=== PATIENT | male | born 1965 | race Caucasian/White ===

== ENCOUNTER → 2016-08-12 | Outpatient (CLI) | payer OTHER ==
[~2016-08-12] MED LIST: AMLO5TAB4 PO; BUPR300T49 PO; GLIP10TA13 PO; HYDR25TA6 PO; INSU100C SQ-INSULIN; INSU100V8 SQ; LEVO50TA5 PO; LOSA100T2 PO; LOVA40TA2 PO; METF10002 PO; METO-93 PO; OMEG1CAP6 PO; OXYC1TAB7 PO; QUET200T4 PO; QUET300T5 PO; RISP2TAB3 PO; RISP3TAB3 PO; TRIF5TAB7 PO; ZOLP10TA PO
== END | disposition home or self-care (01) ==
LOC: RAD 16:13
PROVIDERS: ATTEND Neurological Surgery
DX: D33.2 Benign neoplasm of brain, unspecified (principal); Z98.890 Other specified postprocedural states
CPT/HCPCS: 70450

== ENCOUNTER 2016-11-25 14:24 | Observation (INO) | payer OTHER ==
[~2016-11-25] VITALS: Ht 185.4 cm; Wt 134.0 kg
[2016-11-25 15:58] LABS: HEMATOCRIT 44.2 % (39.2-51.8); HEMOGLOBIN 14.7 g/dL (13.7-18.0); WHITE BLOOD COUNT 10.4 x10^3/uL (3.4-10)
[2016-11-25 16:06] LABS: ASPARTATE AMINO TRANSFERASE 20 U/L (15-37); BLOOD UREA NITROGEN 17 mg/dL (7-18)
[2016-11-25 16:10] LABS: DAU SCREEN DISCLAIMER
[2016-11-25 16:12] LABS: ACETAMINOPHEN < 2 mcg/mL (10-30)
[2016-11-25] MEDS ORDERED: POLYETHYLENE GLYCOL 17 GM PACKET PO PRN (19:30)
[2016-11-25] MEDS ORDERED: ONDANSETRON ODT 4 MG PO PRN (19:30)
[2016-11-25] MEDS ORDERED: LORazepam 1MG TABLET PO PRN (20:00)
[2016-11-25] MEDS ORDERED: HALOPERIDOL 5 MG/ML IM PRN (20:00)
[2016-11-25] MEDS ORDERED: MULT-758 PO (20:27)
[2016-11-25] MEDS ORDERED: ATOR20TA9 PO (20:27)
[2016-11-25] MEDS ORDERED: AMLO10TA2 PO (20:27)
[2016-11-25] MEDS ORDERED: FURO20TA3 PO (20:27)
[2016-11-25] MEDS ORDERED: TIZA2CAP PO (20:27)
[2016-11-25] MEDS ORDERED: PARO10TA3 PO (20:27)
[2016-11-25] MEDS ORDERED: POTA10TA31 PO (20:27)
[2016-11-25] MEDS ORDERED: RISP3TAB3 PO (20:27)
[2016-11-25] MEDS ORDERED: FENO160T PO (20:27)
[2016-11-25] MEDS ORDERED: INSU100V8 SQ (20:33)
[2016-11-25 20:49] VITALS: BP 171/98
[2016-11-25] MEDS ORDERED: ZOLPIDEM 10MG TABLET PO SCH (21:00)
[2016-11-25] MEDS: metFORMIN 500 MG TABLET PO SCH (21:50)
[2016-11-25] MEDS: METOPROLOL SUCCINATE 50 MG TAB.ER.24H PO SCH (21:50)
[2016-11-25] MEDS: LOVASTATIN 40 MG TABLET PO SCH (21:51)
[2016-11-25] MEDS: INSULIN DETEMIR 100 UNITS/ML, PEN SQ-INSULIN SCH (21:55)
[2016-11-25] MEDS ORDERED: RISPERIDONE 1 MG TABLET PO ONE (22:00)
[2016-11-25] MEDS ORDERED: ZOLPIDEM 5MG TABLET ONE (22:28)
[2016-11-25] MEDS ORDERED: ZOLPIDEM 10MG TABLET PO ONE (22:30)
[2016-11-25 22:31] VITALS: BP 153/88
[2016-11-26 05:53] LABS: HEMATOCRIT 40.2 % (39.2-51.8); HEMOGLOBIN 13.3 g/dL (13.7-18.0)
[2016-11-26 06:05] LABS: BLOOD UREA NITROGEN 16 mg/dL (7-18)
[2016-11-26 06:11] LABS: ASPARTATE AMINO TRANSFERASE 13 U/L (15-37)
[2016-11-26] MEDS: INSULIN DETEMIR 100 UNITS/ML, PEN SQ-INSULIN SCH (07:32)
[2016-11-26 08:00] VITALS: BP 158/100
[2016-11-26] MEDS: metFORMIN 500 MG TABLET PO SCH ×2 (08:42→20:01)
[2016-11-26] MEDS ORDERED: SENNA/DOCUSATE TABLET PO SCH (09:00)
[2016-11-26] MEDS ORDERED: OMEGA-3/FISH OIL CAPSULE PO SCH (09:00)
[2016-11-26] MEDS ORDERED: LOSARTAN 50MG TABLET PO SCH (09:00)
[2016-11-26] MEDS ORDERED: HYDROCHLOROTHIAZIDE 25 MG TABLET PO SCH (09:00)
[2016-11-26] MEDS: INSULIN ASPART 100 UNITS/ML, PEN SQ-INSULIN SCH ×3 (09:00→16:34)
[2016-11-26] MEDS ORDERED: AMLODIPINE 5 MG TABLET PO SCH (09:00)
[2016-11-26] MEDS ORDERED: RISPERIDONE 1 MG TABLET PO SCH (09:00)
[2016-11-26] MEDS: METOPROLOL SUCCINATE 50 MG TAB.ER.24H PO SCH ×2 (09:06→20:02)
[2016-11-26] MEDS ORDERED: INSULIN DETEMIR 100 UNITS/ML, PEN SQ-INSULIN SCH (17:00)
[2016-11-26 19:34] VITALS: BP 118/66
[2016-11-26] MEDS ORDERED: METOPROLOL SUCCINATE 25 MG TAB.ER.24H ONE (19:52)
[2016-11-26] MEDS: LOVASTATIN 40 MG TABLET PO SCH (20:01)
[2016-11-26] MEDS ORDERED: ZOLPIDEM 5MG TABLET PO SCH (21:00)
[2016-11-27] MEDS ORDERED: INSULIN DETEMIR 100 UNITS/ML, PEN SQ-INSULIN SCH (08:00)
== END 2016-11-26 21:00 ==
LOC: ED 17:18 → EDIP 17:19 → 3E 20:54
PROVIDERS: ADMIT Hospitalist; ATTEND Hospitalist
DX: F25.9 Schizoaffective disorder, unspecified (principal); D72.829 Elevated white blood cell count, unspecified; I42.9 Cardiomyopathy, unspecified; E78.5 Hyperlipidemia, unspecified; I10 Essential (primary) hypertension; E03.9 Hypothyroidism, unspecified; E11.9 Type 2 diabetes mellitus without complications; F39 Unspecified mood [affective] disorder; F22 Delusional disorders; Z83.3 Family history of diabetes mellitus; Z87.891 Personal history of nicotine dependence; Z95.810 Presence of automatic (implantable) cardiac defibrillator
CPT/HCPCS: 36415; 80053; 80307; 80329; 82962; 83036; 84439; 84443; 85025; 93005; 96372; 99285; G0378; J1815; G0480

== ENCOUNTER → 2016-12-17 | Outpatient (CLI) | payer OTHER ==
[~2016-12-17] MED LIST changes: +AMLO10TA2 PO; +ATOR20TA9 PO; +FENO160T PO; +FURO20TA3 PO; +MULT-758 PO; +PARO10TA3 PO; +POTA10TA31 PO; +TIZA2CAP PO
== END | disposition home or self-care (01) ==
LOC: CFH 12:26
PROVIDERS: ATTEND Registered Nurse Registered Nurse First Assistant
DX: J32.3 Chronic sphenoidal sinusitis (principal); G93.0 Cerebral cysts
CPT/HCPCS: 70450

== ENCOUNTER → 2017-03-19 | Outpatient (CLI) | payer OTHER | END | disposition home or self-care (01) | LOC: CFH 12:14 | PROVIDERS: ATTEND Neurological Surgery | DX: D33.2 Benign neoplasm of brain, unspecified (principal); Z98.890 Other specified postprocedural states | CPT/HCPCS: 70450 ==

== ENCOUNTER → 2018-01-08 | Outpatient (CLI) | payer OTHER ==
[~2018-01-08] MED LIST changes: -AMLO10TA2 PO; +AMLO10TA6 PO
== END | disposition home or self-care (01) ==
LOC: CFH 10:00
PROVIDERS: ATTEND Nurse Practitioner Family
DX: G93.0 Cerebral cysts (principal)
CPT/HCPCS: 70450

== ENCOUNTER 2019-01-24 00:19 | Emergency (ER) | payer MEDICARE ==
[~2019-01-24] VITALS: Ht 185.4 cm; Wt 136.6 kg
[~2019-01-24 00:19] MED LIST changes: -AMLO10TA6 PO; +AMLO10TA8 PO; +ATOR20TA37 PO; -ATOR20TA9 PO
--- NOTE | 2019-01-24 00:30 | NUR ---
UA ATTEMPTED. PT DID NOT PROVIDE SAMPLE WHILST IN REST ROOM
--- NOTE | 2019-01-24 00:42 | NUR ---
ONE BAG OF BELONGINGS STICKERED AND PLACED IN LOCKED CABINET
[2019-01-24 01:02] LABS: BASOPHILS # (AUTO) 0.04 x10^3/uL (0-0.1); BASOPHILS % (AUTO) 0 % (0-1); EOSINOPHILS # (AUTO) 0.24 x10^3/uL (0-0.4); EOSINOPHILS % (AUTO) 2 % (1-7); LYMPHOCYTES # (AUTO) 2.63 x10^3/uL (1-3.4); LYMPHOCYTES % (AUTO) 26 % (22-44); MD NO; MEAN CORPUSCULAR HEMOGLOBIN 30.6 pg (27.5-34.5); MEAN CORPUSCULAR VOLUME 92.8 fL (81-97); MEAN PLATELET VOLUME 7.7 fL (7.4-10.4); MONOCYTES # (AUTO) 0.81 x10^3/uL (0.2-0.8); MONOCYTES % (AUTO) 8 % (2-9); NEUTROPHILS # (AUTO) 6.61 x10^3/uL (1.8-6.8); NEUTROPHILS % (AUTO) 64 % (42-75); PLATELET COUNT 272 x10^3/uL (130-400); RED BLOOD COUNT 4.53 x10^6/uL (4.38-5.82); RED CELL DISTRIBUTION WIDTH 12.7 % (9.4-14.8)
[2019-01-24 01:09] LABS: ALANINE AMINOTRANSFERASE 19 U/L (12-78); ALBUMIN 3.5 g/dL (3.4-5.0); ANION GAP 5 mmol/L (5-15); CALCIUM 9.2 mg/dL (8.5-10.1); CHLORIDE 105 mmol/L (98-107); CREATININE 1.26 mg/dL (0.7-1.3); SALICYLATE LEVEL < 1.7 mg/dL (2.8-20.0)
[2019-01-24 01:12] LABS: ALKALINE PHOSPHATASE 93 U/L (45-117); BILIRUBIN,TOTAL 0.4 mg/dL (0.2-1.0)
--- NOTE | 2019-01-24 01:38 | NUR ---
A SENCOND BAG LABELED AND PLACED IN LOCKED CABINET.
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
[2019-01-24] MEDS ORDERED: ZIPRASIDONE 20 MG INJ IM ONE (02:08)
--- NOTE | 2019-01-24 02:18 | NUR ---
PT NOT COOPERATING. PT WILL BE SLEEPING THEN GET UP AND STATES THAT HE IS TIRED OF BEING HERE AND HE IS LEAVING. WHEN ASKED TO GET BACK IN BED PT WILL REPLY "FUCK YOU" PT CONTINUALLY TRYING TO GET UP AND GET OUT OF BED DESPITE BEING STAFF TRYING TO GET HIM TO STAY IN BED, IN HIS ROOM. PT HOSTILE. PLACED IN 4 PT RESTRAINTS BY SECURITY. MEDICATED PER EMAR.
[2019-01-24] MEDS ORDERED: ZIPRASIDONE 20 MG INJ IM PRN (02:30)
--- NOTE | 2019-01-24 03:52 | NUR ---
ALL RESTRAINTS REMOVED. PT AMBULATORY TO THE BATHROOM WITH STEADY GAIT.
--- NOTE | 2019-01-24 04:16 | NUR ---
PT TELEPSYCHED, SOC RECOMMENDS CONTINUING HOLD. PT MEDICATIONS ADJUSTED.
[2019-01-24 04:17] LABS: AMPHETAMINE SCREEN, URINE Negative (Negative); BARBITURATE SCREEN, URINE Negative (Negative); BENZODIAZEPINE SCREEN, URINE Negative (Negative); CANNABINOID SCREEN, URINE Negative (Negative); COCAINE SCREEN, URINE Negative (Negative); METHADONE SCREEN, URINE Negative (Negative); OPIATE SCREEN, URINE Negative (Negative)
[2019-01-24] MEDS ORDERED: DIPHENHYDRAMINE 25 MG CAPSULE PO PRN (04:30)
[2019-01-24] MEDS ORDERED: HALOPERIDOL 5 MG TABLET ONE ×2 (04:37→09:33)
[2019-01-24] MEDS: HALOPERIDOL 5 MG TABLET PO PRN ×2 (04:39→09:37)
--- NOTE | 2019-01-24 04:40 | NUR ---
PT PACING, BUT CALM AND COOPERATIVE.
--- NOTE | 2019-01-24 05:44 | NUR ---
PT PACING AROUND ROOM, WATCHING TV. PT CONTINUES TO LEAVE ROOM AND HAS TO BE REDIRECTED BACK TO ROOM. PT CALM AND COMPLIENT WHEN REDIRECTED.
--- NOTE | 2019-01-24 06:06 | NUR ---
MEAL TRAY ORDERED
--- NOTE | 2019-01-24 06:16 | NUR ---
SPOKE TO ANNIE ON 3E WHO STATES PTS INSURANCE REQUIRES PRIOR APPROVAL AND WILL INFORM DAYSHIFT. ANNIE STATES OKAY TO SEND REFERRAL PACKET TO OTHER FACILITES. REFERRAL PACKET FAXED TO [facility], [facility], [facility], [facility], [facility], AND [facility].
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
--- NOTE | 2019-01-24 06:59 | NUR ---
REPORT TO AIDEE ARGUETA
[2019-01-24 07:23] VITALS: BP 157/93
--- NOTE | 2019-01-24 07:30 | NUR ---
UPDATE PROVIDED TO [facility]
--- NOTE | 2019-01-24 07:30 | NUR ---
[facility] DOESNT HAVE A MALE BED AVAILABLE
--- NOTE | 2019-01-24 09:37 | NUR ---
PATIENT CONTINUES TO BE COOPERATIVE WITH CARE, REQUESTS HALDOL PRN.
--- NOTE | 2019-01-24 09:47 | NUR ---
SPOKE WITH PATIENTS SISTER- UPDATE PROVIDED.
--- NOTE | 2019-01-24 09:51 | NUR ---
REPORT FROM AIDEE DO. PT RESTING IN SECURED ROOM WITH SITTER AT DOORWAY. PT STATES, "I JUST DON'T HAVE A PLAN FOR LIVING. I HOPE THEY CAN HELP ME WHEREVER I GO." PT CALM AND COOPERATIVE AT THIS TIME. NO NEEDS EXPRESSED.
--- NOTE | 2019-01-24 09:56 | NUR ---
REPORT GIVEN TO RAGHU HOSKINS
--- NOTE | 2019-01-24 10:34 | NUR ---
spoke with rn from 3rd floor. updates given that pt has been calm, cooperative and polite for me. per 3rd floor rn, waiting for insurance authorization. pt resting in room with lights dimmed watching tv. room secured. sitter at doorway. no needs expressed.
--- NOTE | 2019-01-24 11:12 | NUR ---
per rn on 3rd floor, pt is accepted and will be going to 384-1. pt standing in room. watching tv. room secured. sitter at doorway. pt updated on poc. no needs expressed. lunch tray ordered.
--- NOTE | 2019-01-24 12:39 | NUR ---
report to 3rd floor rn. pt ready for transport.
--- NOTE | 2019-01-24 12:44 | NUR ---
pt transferred to 3rd floor [facility] and all belongings.
== END 2019-01-24 17:24 ==
LOC: ED 01:51
DX: F23 Brief psychotic disorder (principal); I10 Essential (primary) hypertension; F25.9 Schizoaffective disorder, unspecified; Z87.891 Personal history of nicotine dependence
CPT/HCPCS: 36415; 80053; 80307; 82962; 85025; 96372; 99285; J3486

== ENCOUNTER 2019-01-24 11:32 | Inpatient (IN) | payer MEDICARE ==
[~2019-01-24] VITALS: Ht 185.4 cm; Wt 131.3 kg
[2019-01-24] MEDS ORDERED: POLYETHYLENE GLYCOL 17 GM PACKET PO PRN (12:00)
[2019-01-24] MEDS ORDERED: ACETAMINOPHEN 325 MG TABLET PO PRN (12:00)
[2019-01-24] MEDS ORDERED: BISACODYL 10 MG SUPP PR PRN (12:00)
[2019-01-24] MEDS ORDERED: PLEASE ENTER HEIGHT AND WEIGHT MC SCH ×2 (13:00→14:00)
[2019-01-24] MEDS ORDERED: DEXTROSE 4 GM TAB.CHEW PO PRN (13:30)
[2019-01-24] MEDS ORDERED: INSULIN GLARGINE, 100 UNITS/ML VIAL SQ SCH (13:30)
[2019-01-24] MEDS ORDERED: GLUCAGON 1 MG IM PRN (13:30)
[2019-01-24] MEDS ORDERED: DEXTROSE 50%, 50ML SYRINGE IVPush PRN (13:30)
[2019-01-24 13:33] VITALS: BP 140/81
[2019-01-24 13:48] LABS: MICROSCOPIC NOT IND
[2019-01-24 13:52] VITALS: BP 140/81
[2019-01-24 13:53] LABS: CULTURE INDICATED? NO
[2019-01-24] MEDS: HALOPERIDOL 5 MG TABLET PO PRN ×2 (14:10→23:36)
[2019-01-24 16:19] LABS: CHOL/HDL RATIO 3.5; FREE T4 (FREE THYROXINE) 1.01 ng/dL (0.76-1.46); LDL/HDL RATIO 1.9 (0.5-3.0)
[2019-01-24] MEDS ORDERED: ALBUTEROL SULFATE 2.5 MG/3 ML NPPB SCH (16:30)
[2019-01-24 16:37] LABS: HEMOGLOBIN A1C 8.7 % (4.2-6.3)
[2019-01-24] MEDS: INSULIN LISPRO 100 UNITS/ML, PEN SQ-INSULIN SCH ×2 (17:04→20:26)
[2019-01-24 19:39] VITALS: BP 149/95
[2019-01-24] MEDS ORDERED: ZOLPIDEM 5MG TABLET ONE (20:02)
[2019-01-24] MEDS: RISPERIDONE 1 MG TAB.RAPDIS PO SCH (20:08)
[2019-01-24] MEDS: metFORMIN 500 MG TABLET PO SCH (20:09)
[2019-01-24] MEDS: QUETIAPINE 200 MG TABLET PO SCH (20:09)
[2019-01-24] MEDS: METOPROLOL SUCCINATE 50 MG TAB.ER.24H PO SCH (20:09)
[2019-01-24] MEDS: INSULIN GLARGINE 100 UNITS/ML, PEN SQ-INSULIN SCH (20:28)
[2019-01-24] MEDS ORDERED: METOPROLOL SUCCINATE 50 MG TAB.ER.24H PO SCH (21:00)
[2019-01-24] MEDS ORDERED: ZOLPIDEM 5MG TABLET PO SCH (21:00)
[2019-01-24] MEDS: SODIUM CHLORIDE FLUSH 10ML SYR IVF SCH (21:38)
[2019-01-25] MEDS ORDERED: LORazepam 2 MG/ML, 1ML ONE (00:24)
[2019-01-25] MEDS ORDERED: LORazepam 2 MG/ML, 1ML IM ONE (00:30)
[2019-01-25] MEDS: HALOPERIDOL 5 MG TABLET PO PRN ×2 (05:44→20:09)
[2019-01-25 07:23] VITALS: BP 164/110
[2019-01-25] MEDS: INSULIN LISPRO 100 UNITS/ML, PEN SQ-INSULIN SCH ×4 (08:09→20:15)
[2019-01-25] MEDS: SODIUM CHLORIDE FLUSH 10ML SYR IVF SCH ×2 (08:16→20:16)
[2019-01-25] MEDS: metFORMIN 500 MG TABLET PO SCH ×2 (08:48→20:09)
[2019-01-25] MEDS: FUROSEMIDE 20 MG TABLET PO SCH (08:49)
[2019-01-25] MEDS: HYDROCHLOROTHIAZIDE 25 MG TABLET PO SCH (08:49)
[2019-01-25] MEDS: POTASSIUM CHLORIDE 10 MEQ TABLET.ER PO SCH (08:49)
[2019-01-25] MEDS: ATORVASTATIN 20 MG TABLET PO SCH (08:49)
[2019-01-25] MEDS: AMLODIPINE 10 MG TAB PO SCH (08:50)
[2019-01-25] MEDS: MULTIVITAMINS/MINERALS TABLET PO SCH (08:50)
[2019-01-25] MEDS: METOPROLOL SUCCINATE 50 MG TAB.ER.24H PO SCH ×2 (08:50→20:09)
[2019-01-25] MEDS: PAROXETINE 10 MG TABLET PO SCH (08:50)
[2019-01-25] MEDS: OMEGA-3/FISH OIL CAPSULE PO SCH ×2 (08:51→09:12)
[2019-01-25] MEDS: FENOFIBRATE 145 MG TABLET PO SCH (08:51)
[2019-01-25] MEDS ORDERED: AMLODIPINE 10 MG TAB PO SCH (09:00)
[2019-01-25] MEDS ORDERED: FUROSEMIDE 20 MG TABLET PO SCH (09:00)
[2019-01-25] MEDS ORDERED: HYDROCHLOROTHIAZIDE 25 MG TABLET PO SCH (09:00)
[2019-01-25 16:36] LABS: ALANINE AMINOTRANSFERASE 24 U/L (12-78); ANION GAP 6 mmol/L (5-15); CALCIUM 8.9 mg/dL (8.5-10.1); CHLORIDE 103 mmol/L (98-107)
[2019-01-25 16:38] LABS: BASOPHILS # (AUTO) 0.06 x10^3/uL (0-0.1); BASOPHILS % (AUTO) 1 % (0-1); EOSINOPHILS % (AUTO) 3 % (1-7); LYMPHOCYTES # (AUTO) 3.01 x10^3/uL (1-3.4); LYMPHOCYTES % (AUTO) 27 % (22-44); MD NO; MEAN CORPUSCULAR HEMOGLOBIN 30.8 pg (27.5-34.5); MEAN CORPUSCULAR HGB CONC 33.3 g/dL (33.2-36.2); MEAN CORPUSCULAR VOLUME 92.5 fL (81-97); MEAN PLATELET VOLUME 7.6 fL (7.4-10.4); MONOCYTES # (AUTO) 0.87 x10^3/uL (0.2-0.8); MONOCYTES % (AUTO) 8 % (2-9); NEUTROPHILS # (AUTO) 6.74 x10^3/uL (1.8-6.8); NEUTROPHILS % (AUTO) 61 % (42-75); PLATELET COUNT 334 x10^3/uL (130-400); RED BLOOD COUNT 4.88 x10^6/uL (4.38-5.82); RED CELL DISTRIBUTION WIDTH 13.1 % (9.4-14.8)
[2019-01-25 16:39] LABS: ALKALINE PHOSPHATASE 77 U/L (45-117); BILIRUBIN,TOTAL 0.4 mg/dL (0.2-1.0); CREATININE 1.05 mg/dL (0.7-1.3); TOTAL PROTEIN 7.8 g/dL (6.4-8.2)
[2019-01-25 19:43] VITALS: BP 136/81
[2019-01-25] MEDS: MELATONIN 5 MG TABLET PO SCH (20:09)
[2019-01-25] MEDS: RISPERIDONE 1 MG TAB.RAPDIS PO SCH (20:09)
[2019-01-25] MEDS: QUETIAPINE 200 MG TABLET PO SCH (20:09)
[2019-01-25] MEDS: INSULIN GLARGINE 100 UNITS/ML, PEN SQ-INSULIN SCH (20:13)
[2019-01-26 07:00] VITALS: BP 136/81
[2019-01-26] MEDS: AMLODIPINE 10 MG TAB PO SCH (08:25)
[2019-01-26] MEDS: metFORMIN 500 MG TABLET PO SCH ×2 (08:25→20:24)
[2019-01-26] MEDS: OMEGA-3/FISH OIL CAPSULE PO SCH (08:25)
[2019-01-26] MEDS: MULTIVITAMINS/MINERALS TABLET PO SCH (08:25)
[2019-01-26] MEDS: INSULIN LISPRO 100 UNITS/ML, PEN SQ-INSULIN SCH ×4 (08:25→20:42)
[2019-01-26] MEDS: METOPROLOL SUCCINATE 50 MG TAB.ER.24H PO SCH ×2 (08:25→20:25)
[2019-01-26] MEDS: PAROXETINE 10 MG TABLET PO SCH (08:26)
[2019-01-26] MEDS: ATORVASTATIN 20 MG TABLET PO SCH (08:26)
[2019-01-26] MEDS: FUROSEMIDE 20 MG TABLET PO SCH (08:26)
[2019-01-26] MEDS: HYDROCHLOROTHIAZIDE 25 MG TABLET PO SCH (08:26)
[2019-01-26] MEDS: FENOFIBRATE 145 MG TABLET PO SCH (08:26)
[2019-01-26] MEDS: POTASSIUM CHLORIDE 10 MEQ TABLET.ER PO SCH (08:28)
[2019-01-26] MEDS: SODIUM CHLORIDE FLUSH 10ML SYR IVF SCH ×2 (08:33→21:00)
[2019-01-26 19:28] VITALS: BP 133/82
[2019-01-26] MEDS: MELATONIN 5 MG TABLET PO SCH (20:24)
[2019-01-26] MEDS: QUETIAPINE 200 MG TABLET PO SCH (20:25)
[2019-01-26] MEDS: INSULIN GLARGINE 100 UNITS/ML, PEN SQ-INSULIN SCH (20:43)
[2019-01-26] MEDS ORDERED: ZIPRASIDONE 20MG CAPSULE PO SCH (21:00)
[2019-01-27] MEDS: HALOPERIDOL 5 MG TABLET PO PRN ×2 (01:30→13:55)
[2019-01-27 07:36] VITALS: BP 144/95
[2019-01-27] MEDS: INSULIN LISPRO 100 UNITS/ML, PEN SQ-INSULIN SCH ×4 (08:11→20:49)
[2019-01-27] MEDS: MULTIVITAMINS/MINERALS TABLET PO SCH (08:12)
[2019-01-27] MEDS: METOPROLOL SUCCINATE 50 MG TAB.ER.24H PO SCH ×2 (08:12→20:15)
[2019-01-27] MEDS: AMLODIPINE 10 MG TAB PO SCH (08:12)
[2019-01-27] MEDS: OMEGA-3/FISH OIL CAPSULE PO SCH (08:12)
[2019-01-27] MEDS: PAROXETINE 10 MG TABLET PO SCH (08:13)
[2019-01-27] MEDS: HYDROCHLOROTHIAZIDE 25 MG TABLET PO SCH (08:13)
[2019-01-27] MEDS: ATORVASTATIN 20 MG TABLET PO SCH (08:13)
[2019-01-27] MEDS: FENOFIBRATE 145 MG TABLET PO SCH (08:13)
[2019-01-27] MEDS: FUROSEMIDE 20 MG TABLET PO SCH (08:13)
[2019-01-27] MEDS: POTASSIUM CHLORIDE 10 MEQ TABLET.ER PO SCH (08:14)
[2019-01-27] MEDS: metFORMIN 500 MG TABLET PO SCH ×2 (08:16→20:15)
[2019-01-27 19:09] VITALS: BP 137/79
[2019-01-27] MEDS: MELATONIN 5 MG TABLET PO SCH (20:15)
[2019-01-27] MEDS: ZIPRASIDONE 20MG CAPSULE PO SCH (20:15)
[2019-01-27] MEDS: QUETIAPINE 200 MG TABLET PO SCH (20:15)
[2019-01-27] MEDS: INSULIN GLARGINE 100 UNITS/ML, PEN SQ-INSULIN SCH (20:50)
[2019-01-27] MEDS ORDERED: DIPHENHYDRAMINE 25 MG CAPSULE ONE (23:33)
[2019-01-28] MEDS ORDERED: DIPHENHYDRAMINE 25 MG CAPSULE PO ONE
[2019-01-28] MEDS ORDERED: DIPHENHYDRAMINE 25 MG CAPSULE PO PRN
[2019-01-28] MEDS: HALOPERIDOL 5 MG TABLET PO PRN ×2 (01:42→22:34)
[2019-01-28 07:50] VITALS: BP 152/85
[2019-01-28] MEDS: INSULIN LISPRO 100 UNITS/ML, PEN SQ-INSULIN SCH ×4 (08:06→19:58)
[2019-01-28] MEDS: POTASSIUM CHLORIDE 10 MEQ TABLET.ER PO SCH (09:00)
[2019-01-28] MEDS: ZIPRASIDONE 20MG CAPSULE PO SCH ×2 (09:23→20:48)
[2019-01-28] MEDS: HYDROCHLOROTHIAZIDE 25 MG TABLET PO SCH (09:24)
[2019-01-28] MEDS: metFORMIN 500 MG TABLET PO SCH ×2 (09:24→20:49)
[2019-01-28] MEDS: MULTIVITAMINS/MINERALS TABLET PO SCH (09:24)
[2019-01-28] MEDS: AMLODIPINE 10 MG TAB PO SCH (09:24)
[2019-01-28] MEDS: OMEGA-3/FISH OIL CAPSULE PO SCH (09:24)
[2019-01-28] MEDS: FENOFIBRATE 145 MG TABLET PO SCH (09:24)
[2019-01-28] MEDS: PAROXETINE 10 MG TABLET PO SCH (09:24)
[2019-01-28] MEDS: FUROSEMIDE 20 MG TABLET PO SCH (09:24)
[2019-01-28] MEDS: DOCUSATE 100 MG CAPSULE PO PRN (09:24)
[2019-01-28] MEDS: ATORVASTATIN 20 MG TABLET PO SCH (09:25)
[2019-01-28] MEDS: METOPROLOL SUCCINATE 50 MG TAB.ER.24H PO SCH ×2 (09:25→20:49)
[2019-01-28 19:37] VITALS: BP 136/86
[2019-01-28] MEDS: INSULIN GLARGINE 100 UNITS/ML, PEN SQ-INSULIN SCH (19:57)
[2019-01-28] MEDS: DOXEPIN 25 MG CAPSULE PO SCH (20:48)
[2019-01-28] MEDS: MELATONIN 5 MG TABLET PO SCH (20:49)
[2019-01-28] MEDS: QUETIAPINE 200 MG TABLET PO SCH (20:49)
[2019-01-28] MEDS: DOXEPIN 100 MG CAPSULE PO SCH (21:00)
[2019-01-29 07:01] VITALS: BP 136/87
[2019-01-29] MEDS: INSULIN LISPRO 100 UNITS/ML, PEN SQ-INSULIN SCH ×4 (08:06→19:59)
[2019-01-29] MEDS: ZIPRASIDONE 20MG CAPSULE PO SCH ×2 (08:31→19:58)
[2019-01-29] MEDS: AMLODIPINE 10 MG TAB PO SCH (08:31)
[2019-01-29] MEDS: metFORMIN 500 MG TABLET PO SCH ×2 (08:32→19:59)
[2019-01-29] MEDS: PAROXETINE 10 MG TABLET PO SCH (08:32)
[2019-01-29] MEDS: OMEGA-3/FISH OIL CAPSULE PO SCH (08:32)
[2019-01-29] MEDS: FENOFIBRATE 145 MG TABLET PO SCH (08:32)
[2019-01-29] MEDS: METOPROLOL SUCCINATE 50 MG TAB.ER.24H PO SCH ×2 (08:33→19:58)
[2019-01-29] MEDS: FUROSEMIDE 20 MG TABLET PO SCH (08:33)
[2019-01-29] MEDS: HYDROCHLOROTHIAZIDE 25 MG TABLET PO SCH (08:33)
[2019-01-29] MEDS: ATORVASTATIN 20 MG TABLET PO SCH (08:33)
[2019-01-29] MEDS: POTASSIUM CHLORIDE 10 MEQ TABLET.ER PO SCH (08:33)
[2019-01-29] MEDS: MULTIVITAMINS/MINERALS TABLET PO SCH (08:33)
[2019-01-29 19:35] VITALS: BP 162/89
[2019-01-29] MEDS: DOXEPIN 25 MG CAPSULE PO SCH (19:58)
[2019-01-29] MEDS: MELATONIN 5 MG TABLET PO SCH (19:58)
[2019-01-29] MEDS: QUETIAPINE 200 MG TABLET PO SCH (19:59)
[2019-01-29] MEDS: DOXEPIN 100 MG CAPSULE PO SCH (19:59)
[2019-01-29] MEDS: INSULIN GLARGINE 100 UNITS/ML, PEN SQ-INSULIN SCH (20:00)
[2019-01-30] MEDS ORDERED: ZIPRASIDONE 20MG CAPSULE PO ONE (02:00)
[2019-01-30 07:06] VITALS: BP 148/89
[2019-01-30] MEDS: INSULIN LISPRO 100 UNITS/ML, PEN SQ-INSULIN SCH ×4 (08:07→19:54)
[2019-01-30] MEDS ORDERED: DIPHENHYDRAMINE 50 MG/ML, 1ML ONE (08:42)
[2019-01-30] MEDS ORDERED: OLANZAPINE 10 MG INJ IM ONE ×2 (08:42→09:00)
[2019-01-30] MEDS ORDERED: LORazepam 2 MG/ML, 1ML ONE (08:43)
[2019-01-30] MEDS ORDERED: ZIPRASIDONE 40MG CAPSULE PO SCH (09:00)
[2019-01-30] MEDS: HYDROCHLOROTHIAZIDE 25 MG TABLET PO SCH (09:00)
[2019-01-30] MEDS: ATORVASTATIN 20 MG TABLET PO SCH (09:00)
[2019-01-30] MEDS: PAROXETINE 10 MG TABLET PO SCH (09:00)
[2019-01-30] MEDS: MULTIVITAMINS/MINERALS TABLET PO SCH (09:00)
[2019-01-30] MEDS: FENOFIBRATE 145 MG TABLET PO SCH (09:00)
[2019-01-30] MEDS ORDERED: LORazepam 2 MG/ML, 1ML IM ONE (09:00)
[2019-01-30] MEDS: METOPROLOL SUCCINATE 50 MG TAB.ER.24H PO SCH ×2 (09:00→21:56)
[2019-01-30] MEDS: FUROSEMIDE 20 MG TABLET PO SCH (09:00)
[2019-01-30] MEDS: POTASSIUM CHLORIDE 10 MEQ TABLET.ER PO SCH (09:00)
[2019-01-30] MEDS ORDERED: DIPHENHYDRAMINE 50 MG/ML, 1ML IM ONE (09:00)
[2019-01-30] MEDS: AMLODIPINE 10 MG TAB PO SCH (09:00)
[2019-01-30] MEDS: OMEGA-3/FISH OIL CAPSULE PO SCH (09:00)
[2019-01-30] MEDS: metFORMIN 500 MG TABLET PO SCH ×2 (09:00→21:54)
[2019-01-30 10:53] VITALS: BP 114/61
[2019-01-30] MEDS: RISPERIDONE 1 MG TAB.RAPDIS PO SCH ×2 (11:53→21:55)
[2019-01-30 19:31] VITALS: BP 129/82
[2019-01-30] MEDS: INSULIN GLARGINE 100 UNITS/ML, PEN SQ-INSULIN SCH (19:53)
[2019-01-30] MEDS ORDERED: RISPERIDONE 1 MG TAB.RAPDIS PO SCH (21:00)
[2019-01-30] MEDS: DOXEPIN 100 MG CAPSULE PO SCH (21:53)
[2019-01-30] MEDS: DOXEPIN 25 MG CAPSULE PO SCH (21:54)
[2019-01-30] MEDS: QUETIAPINE 200 MG TABLET PO SCH (21:55)
[2019-01-30] MEDS: MELATONIN 5 MG TABLET PO SCH (21:55)
[2019-01-31] MEDS: HALOPERIDOL 5 MG TABLET PO PRN
[2019-01-31] MEDS: INSULIN LISPRO 100 UNITS/ML, PEN SQ-INSULIN SCH ×4 (08:19→20:53)
[2019-01-31] MEDS: OMEGA-3/FISH OIL CAPSULE PO SCH (08:20)
[2019-01-31] MEDS: metFORMIN 500 MG TABLET PO SCH ×2 (08:20→20:39)
[2019-01-31] MEDS: HYDROCHLOROTHIAZIDE 25 MG TABLET PO SCH (08:21)
[2019-01-31] MEDS: FUROSEMIDE 20 MG TABLET PO SCH (08:21)
[2019-01-31] MEDS: PAROXETINE 10 MG TABLET PO SCH (08:22)
[2019-01-31] MEDS: MULTIVITAMINS/MINERALS TABLET PO SCH (08:22)
[2019-01-31] MEDS: ATORVASTATIN 20 MG TABLET PO SCH (08:22)
[2019-01-31] MEDS: FENOFIBRATE 145 MG TABLET PO SCH (08:23)
[2019-01-31] MEDS: AMLODIPINE 10 MG TAB PO SCH (08:23)
[2019-01-31] MEDS: RISPERIDONE 1 MG TAB.RAPDIS PO SCH ×2 (08:23→20:39)
[2019-01-31] MEDS: METOPROLOL SUCCINATE 50 MG TAB.ER.24H PO SCH ×2 (08:23→20:39)
[2019-01-31] MEDS: POTASSIUM CHLORIDE 10 MEQ TABLET.ER PO SCH (08:32)
[2019-01-31] MEDS: DOCUSATE 100 MG CAPSULE PO PRN (18:08)
[2019-01-31 19:49] VITALS: BP 142/75
[2019-01-31] MEDS: DOXEPIN 25 MG CAPSULE PO SCH (20:37)
[2019-01-31] MEDS: LORazepam 1MG TABLET PO SCH (20:37)
[2019-01-31] MEDS: MELATONIN 5 MG TABLET PO SCH (20:39)
[2019-01-31] MEDS: DOXEPIN 100 MG CAPSULE PO SCH (20:39)
[2019-01-31] MEDS: INSULIN GLARGINE 100 UNITS/ML, PEN SQ-INSULIN SCH (21:15)
[2019-01-31] MEDS: QUETIAPINE 200 MG TABLET PO SCH (21:16)
[2019-02-01 07:29] VITALS: BP 137/85
[2019-02-01] MEDS: INSULIN LISPRO 100 UNITS/ML, PEN SQ-INSULIN SCH ×4 (07:35→20:26)
[2019-02-01] MEDS: OMEGA-3/FISH OIL CAPSULE PO SCH (08:25)
[2019-02-01] MEDS: FENOFIBRATE 145 MG TABLET PO SCH (08:25)
[2019-02-01] MEDS: FUROSEMIDE 20 MG TABLET PO SCH (08:26)
[2019-02-01] MEDS: ATORVASTATIN 20 MG TABLET PO SCH (08:26)
[2019-02-01] MEDS: MULTIVITAMINS/MINERALS TABLET PO SCH (08:26)
[2019-02-01] MEDS: metFORMIN 500 MG TABLET PO SCH ×2 (08:26→20:18)
[2019-02-01] MEDS: AMLODIPINE 10 MG TAB PO SCH (08:26)
[2019-02-01] MEDS: PAROXETINE 10 MG TABLET PO SCH (08:26)
[2019-02-01] MEDS: METOPROLOL SUCCINATE 50 MG TAB.ER.24H PO SCH ×2 (08:26→20:19)
[2019-02-01] MEDS: HYDROCHLOROTHIAZIDE 25 MG TABLET PO SCH (08:26)
[2019-02-01] MEDS: RISPERIDONE 1 MG TAB.RAPDIS PO SCH ×2 (08:27→20:44)
[2019-02-01] MEDS: POTASSIUM CHLORIDE 10 MEQ TABLET.ER PO SCH (08:27)
[2019-02-01] MEDS ORDERED: QUET200T PO (14:42)
[2019-02-01] MEDS ORDERED: PARO10TA3 PO (14:42)
[2019-02-01] MEDS ORDERED: RISP-2 PO (14:42)
[2019-02-01] MEDS ORDERED: LORA-446 PO (14:42)
[2019-02-01 19:00] VITALS: BP 125/78
[2019-02-01] MEDS: LORazepam 1MG TABLET PO SCH (20:18)
[2019-02-01] MEDS: DOXEPIN 100 MG CAPSULE PO SCH (20:18)
[2019-02-01] MEDS: QUETIAPINE 200 MG TABLET PO SCH (20:18)
[2019-02-01] MEDS: MELATONIN 5 MG TABLET PO SCH (20:19)
[2019-02-01] MEDS: DOXEPIN 25 MG CAPSULE PO SCH (20:19)
[2019-02-01] MEDS: INSULIN GLARGINE 100 UNITS/ML, PEN SQ-INSULIN SCH (20:25)
[2019-02-01 23:01] VITALS: BP 126/79
[2019-02-02] MEDS: HALOPERIDOL 5 MG TABLET PO PRN (01:42)
[2019-02-02 07:32] VITALS: BP 125/78
[2019-02-02] MEDS: metFORMIN 500 MG TABLET PO SCH (08:07)
[2019-02-02] MEDS: OMEGA-3/FISH OIL CAPSULE PO SCH (08:07)
[2019-02-02] MEDS: AMLODIPINE 10 MG TAB PO SCH (08:08)
[2019-02-02] MEDS: MULTIVITAMINS/MINERALS TABLET PO SCH (08:08)
[2019-02-02] MEDS: ATORVASTATIN 20 MG TABLET PO SCH (08:08)
[2019-02-02] MEDS: FUROSEMIDE 20 MG TABLET PO SCH (08:08)
[2019-02-02] MEDS: PAROXETINE 10 MG TABLET PO SCH (08:08)
[2019-02-02] MEDS: FENOFIBRATE 145 MG TABLET PO SCH (08:09)
[2019-02-02] MEDS: METOPROLOL SUCCINATE 50 MG TAB.ER.24H PO SCH (08:09)
[2019-02-02] MEDS: POTASSIUM CHLORIDE 10 MEQ TABLET.ER PO SCH (08:10)
[2019-02-02] MEDS: RISPERIDONE 1 MG TAB.RAPDIS PO SCH (08:12)
[2019-02-02] MEDS: HYDROCHLOROTHIAZIDE 25 MG TABLET PO SCH (08:12)
[2019-02-02] MEDS: INSULIN LISPRO 100 UNITS/ML, PEN SQ-INSULIN SCH (08:15)
== END 2019-02-02 10:55 | disposition home or self-care (01) | DRG 885 ==
LOC: 3E 12:48
PROVIDERS: ADMIT Psychiatry & Neurology Psychosomatic Medicine; ATTEND Psychiatry & Neurology Psychosomatic Medicine
DX: F25.1 Schizoaffective disorder, depressive type (principal); R45.851 Suicidal ideations; I42.9 Cardiomyopathy, unspecified; T43.592A Poisoning by other antipsychotics and neuroleptics, intentional self-harm, initial encounter; G93.0 Cerebral cysts; E03.9 Hypothyroidism, unspecified; E11.9 Type 2 diabetes mellitus without complications; E66.9 Obesity, unspecified; I10 Essential (primary) hypertension; E78.5 Hyperlipidemia, unspecified; F25.0 Schizoaffective disorder, bipolar type; G47.00 Insomnia, unspecified; Z82.49 Family history of ischemic heart disease and other diseases of the circulatory system; Z68.38 Body mass index [BMI] 38.0-38.9, adult; Z79.4 Long term (current) use of insulin; Z79.899 Other long term (current) drug therapy; Z88.1 Allergy status to other antibiotic agents; Y92.89 Other specified places as the place of occurrence of the external cause; E78.1 Pure hyperglyceridemia; F41.9 Anxiety disorder, unspecified
CPT/HCPCS: 36415; 70450; 71045; 80053; 80061; 81003; 82140; 82962; 83036; 84439; 84443; 85025; 93005; J1200; J1815; J2060; Q0163

== ENCOUNTER 2019-03-14 23:31 | Emergency (ER) | payer MEDICARE ==
[~2019-03-14] VITALS: Ht 185.4 cm; Wt 136.6 kg
[~2019-03-14 23:31] MED LIST changes: +LORA-446 PO; +QUET200T PO; +RISP-2 PO
[2019-03-14 23:33] VITALS: BP 173/90
[2019-03-15] MEDS ORDERED: ZIPRASIDONE 20 MG INJ IM ONE ×2
[2019-03-15 00:12] LABS: BASOPHILS # (AUTO) 0.06 x10^3/uL (0-0.1); BASOPHILS % (AUTO) 1 % (0-1); EOSINOPHILS # (AUTO) 0.08 x10^3/uL (0-0.4); EOSINOPHILS % (AUTO) 1 % (1-7); LYMPHOCYTES # (AUTO) 2.55 x10^3/uL (1-3.4); LYMPHOCYTES % (AUTO) 26 % (22-44); MD NO; MEAN CORPUSCULAR HEMOGLOBIN 31.2 pg (27.5-34.5); MEAN CORPUSCULAR HGB CONC 33.6 g/dL (33.2-36.2); MEAN CORPUSCULAR VOLUME 92.8 fL (81-97); MEAN PLATELET VOLUME 7.8 fL (7.4-10.4); MONOCYTES # (AUTO) 0.53 x10^3/uL (0.2-0.8); MONOCYTES % (AUTO) 5 % (2-9); NEUTROPHILS # (AUTO) 6.75 x10^3/uL (1.8-6.8); NEUTROPHILS % (AUTO) 68 % (42-75); PLATELET COUNT 264 x10^3/uL (130-400); RED BLOOD COUNT 4.77 x10^6/uL (4.38-5.82)
[2019-03-15 00:22] LABS: ALBUMIN 3.6 g/dL (3.4-5.0); ANION GAP 10 mmol/L (5-15); CALCIUM 8.6 mg/dL (8.5-10.1); CHLORIDE 101 mmol/L (98-107); SALICYLATE LEVEL 5.9 mg/dL (2.8-20.0)
[2019-03-15 00:24] LABS: CREATININE 1.02 mg/dL (0.7-1.3)
[2019-03-15 00:38] LABS: AMPHETAMINE SCREEN, URINE Negative (Negative); BARBITURATE SCREEN, URINE Negative (Negative); BENZODIAZEPINE SCREEN, URINE Negative (Negative); CANNABINOID SCREEN, URINE Negative (Negative); COCAINE SCREEN, URINE Negative (Negative); METHADONE SCREEN, URINE Negative (Negative); OPIATE SCREEN, URINE Negative (Negative)
--- NOTE | 2019-03-15 00:53 | NUR ---
Patient came to ER c/o lack of sleep x2.5 months. He is also experiecing auditory hallucinations. Sister accompanies patient and states he has had a lot of stress this year. Patient placed on suicidal precautions. Belongings collected and placed in 2 bags.
[2019-03-15] MEDS ORDERED: LORazepam 1MG TABLET ONE (01:21)
[2019-03-15] MEDS ORDERED: LORazepam 1MG TABLET PO ONE (01:30)
--- NOTE | 2019-03-15 02:10 | NUR ---
Patient resting in gurney. Respirations even and unlabored. Belongings locked in cabinet. Sitter outside room.
--- NOTE | 2019-03-15 03:24 | NUR ---
Patient resting in gurney. Respirations even and unlabored. Patient to be transferred to room 389. Report given to AIDEE Whitney.
--- NOTE | 2019-03-15 03:28 | NUR ---
Patient discharged and prepared for transport to . Patient transported by orthopaedic technologist. Belongings with tech.
== END 2019-03-15 03:30 | disposition home or self-care (01) ==
LOC: ED 03-15 00:38
DX: F31.62 Bipolar disorder, current episode mixed, moderate (principal); F22 Delusional disorders; F23 Brief psychotic disorder; I10 Essential (primary) hypertension; F17.200 Nicotine dependence, unspecified, uncomplicated; Z72.89 Other problems related to lifestyle
CPT/HCPCS: 36415; 70450; 80048; 80307; 82040; 85025; 96372; 99284; J3486

== ENCOUNTER 2019-03-15 17:37 | Emergency (ER) | payer MEDICARE ==
[~2019-03-15] VITALS: Ht 185.4 cm; Wt 134.4 kg
[2019-03-15 18:52] LABS: BASOPHILS # (AUTO) 0.04 x10^3/uL (0-0.1); BASOPHILS % (AUTO) 0 % (0-1); EOSINOPHILS % (AUTO) 1 % (1-7); LYMPHOCYTES # (AUTO) 1.95 x10^3/uL (1-3.4); LYMPHOCYTES % (AUTO) 22 % (22-44); MD NO; MEAN CORPUSCULAR HGB CONC 33.7 g/dL (33.2-36.2); MEAN CORPUSCULAR VOLUME 92.1 fL (81-97); MONOCYTES # (AUTO) 0.63 x10^3/uL (0.2-0.8); MONOCYTES % (AUTO) 7 % (2-9); NEUTROPHILS # (AUTO) 6.18 x10^3/uL (1.8-6.8); NEUTROPHILS % (AUTO) 70 % (42-75); PLATELET COUNT 264 x10^3/uL (130-400); RED BLOOD COUNT 4.71 x10^6/uL (4.38-5.82)
[2019-03-15 19:01] LABS: ALANINE AMINOTRANSFERASE 29 U/L (12-78); ALBUMIN 3.6 g/dL (3.4-5.0); ANION GAP 6 mmol/L (5-15); CALCIUM 8.5 mg/dL (8.5-10.1); CHLORIDE 104 mmol/L (98-107); CREATININE 1.19 mg/dL (0.7-1.3)
[2019-03-15 19:03] LABS: ALKALINE PHOSPHATASE 82 U/L (45-117); BILIRUBIN,TOTAL 0.4 mg/dL (0.2-1.0); SALICYLATE LEVEL 4.8 mg/dL (2.8-20.0); TOTAL PROTEIN 7.2 g/dL (6.4-8.2)
--- NOTE | 2019-03-15 19:11 | NUR ---
BELONGINGS BAGS X 2 LABELED AND IN LOCKER
--- NOTE | 2019-03-15 19:35 | NUR ---
LATE ENTRY, PT AMBULATORY TO ROOM FROM TRIAGE. FAMILY AT BEDSIDE. SITTER AT DOORWAY WITH PT IN VIEW. BELONGINGS BAGS X 2 LABELED AND PLACED IN LOCKER.
--- NOTE | 2019-03-15 19:37 | NUR ---
DIET TRAY ORDERED.
--- NOTE | 2019-03-15 19:40 | NUR ---
JUAN LIN [phone]
--- NOTE | 2019-03-15 20:21 | NUR ---
REPORT FROM JADON VELEZ SENT, PT REFUSED BY 3 EAST IN HOUSE AT THIS TIME, PT PLACED ON A LEGAL HOLD BY DR MORAN
[2019-03-15 20:22] LABS: AMPHETAMINE SCREEN, URINE Negative (Negative); BARBITURATE SCREEN, URINE Negative (Negative); BENZODIAZEPINE SCREEN, URINE Negative (Negative); CANNABINOID SCREEN, URINE Negative (Negative); COCAINE SCREEN, URINE Negative (Negative); METHADONE SCREEN, URINE Negative (Negative); OPIATE SCREEN, URINE Negative (Negative)
[2019-03-15] MEDS ORDERED: LORazepam 1MG TABLET ONE (20:26)
[2019-03-15] MEDS ORDERED: LORazepam 1MG TABLET PO ONE (20:30)
--- NOTE | 2019-03-15 21:13 | NUR ---
Moe pedraza in ED - 03/15/19 at 2215 by [email or web address] Patient finished consult with telePSYCH. He is resting comfortably in the [facility] with no complaints. Sitter outside room.
--- NOTE | 2019-03-15 21:13 | NUR ---
Patient is resting comfortably in bed with no complaints. Sitter outside room.
--- NOTE | 2019-03-15 22:16 | NUR ---
Patient is resting comfortably in bed with no complaints. Sitter outside room.
--- NOTE | 2019-03-15 23:09 | NUR ---
PACKET FAXED TO [facility], [facility], [facility], [facility]. [facility] UNABLE TO TAKE PT.
[2019-03-16 00:24] VITALS: BP 154/97
--- NOTE | 2019-03-16 00:58 | NUR ---
BREAK RN: VITALS DONE AND CHARTED. PT HAD MYSTERY PATCH ON LEFT ARM, PATCH HAS NO IDENTIFYING PRINT ON IT, PATCH REMOVED. PT STATED WAS A NICOTINE PATCH, PT ALREADY HAS NICOTINE PATCH ON RIGHT UPPER ARM OF PRESCRIBED DOSE. [facility] WANT[facility] TO TAKE PT, NEEDED MED LIST CLARIFIED, SHARMILA FOURNIER CLARIFIED PT MEDS. [facility] ASKING BLOOD GLUCOSE TO BE ADDRESSED, PRIMARY RN AWARE. SITTER AT DOOR.
[2019-03-16] MEDS ORDERED: INSULIN LISPRO SINGLE DOSE, ER SQ-INSULIN ONE (01:26)
[2019-03-16] MEDS ORDERED: INSULIN LISPRO 100 UNIT/ML, 3ML VIAL SQ-INSULIN SCH (01:30)
--- NOTE | 2019-03-16 01:50 | NUR ---
BGL addressed and medication administered per mar. Patient continuously getting out of bed and requesting to make a phone call.
--- NOTE | 2019-03-16 03:06 | NUR ---
Patient to be transferred to [facility]. [facility] ETA 30 minutes.
[2019-03-16] MEDS ORDERED: INSULIN GLARGINE 100 UNITS/ML, PEN SQ-INSULIN SCH (21:00)
== END 2019-03-16 05:09 ==
LOC: ED 19:30 → EDIP 20:00 → UNDOADMIN 20:00 → ED 03-16 05:09
DX: F31.9 Bipolar disorder, unspecified (principal); I10 Essential (primary) hypertension; F25.9 Schizoaffective disorder, unspecified; F17.200 Nicotine dependence, unspecified, uncomplicated; E11.9 Type 2 diabetes mellitus without complications
CPT/HCPCS: 36415; 80053; 80307; 85025; 96372; 99285; J1815; 99284

== ENCOUNTER → 2019-11-16 | Outpatient (CLI) | payer MEDICARE | END | disposition home or self-care (01) | LOC: CVU 11:45 | PROVIDERS: ATTEND Internal Medicine Cardiovascular Disease | DX: I42.9 Cardiomyopathy, unspecified (principal); I10 Essential (primary) hypertension | CPT/HCPCS: 93306; 93356 ==

== ENCOUNTER → 2020-04-04 | Outpatient (CLI) | payer MEDICARE ==
[~2020-04-04] MED LIST changes: +AMLO-211 PO; -AMLO10TA8 PO; -RISP2TAB3 PO; +RISP2TAB80 PO; -RISP3TAB3 PO; +RISP3TAB58 PO
== END | disposition home or self-care (01) ==
LOC: CFH 09:07
PROVIDERS: ATTEND Nurse Practitioner Family
DX: G93.0 Cerebral cysts (principal)
CPT/HCPCS: 70450

== ENCOUNTER 2020-11-22 14:02 | Observation (INO) | payer MEDICARE ==
[~2020-11-22] VITALS: Ht 185.4 cm; Wt 142.0 kg
[~2020-11-22 14:02] MED LIST changes: -QUET200T PO; +QUET200T2 PO
--- NOTE | 2020-11-22 14:04 | NUR ---
ERMD AT BEDSIDE FOR EVALUATION.
--- NOTE | 2020-11-22 14:05 | NUR ---
LATE ENTRY DUE TO PATIENT CARE: [facility] WITH CHIEF C/O "PSYCH ISSUES." PER EMS PATIENT WAS ON DEPAKOTE AND DIDN'T LIKE IT SO SPOKE WITH A TELE DOC AND WAS SWITCHED TO SEROQUEL YESTERDAY. PATIENT DOUBLED HIS DOSE, REPORTED TO EMS HE WAS HAVING A STROKE AND NEEDED TO BE TAKEN TO EMERGENCY ROOM. PATIENT C/O FATIGUE, SLURRED SPEECH AND "SLURRED VISION." PATIENT IS NON-COMPLIANT WITH HIS MEDICATIONS PER EMS. UPON ASSESSMENT PATIENT DIFFICULT TO UNDERSTAND, KEEPS DOZING OFF DURING CONVERSATIONS, A&O X4, GCS=15, PLACED ON 2 LPM NC DUE TO O2 SATURATION DROPPING BELOW 90%, OTHER VSS, NADN, CALL LIGHT WITHIN REACH.
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
[2020-11-22 15:01] LABS: BASOPHILS % (AUTO) 2 % (0-1); EOSINOPHILS % (AUTO) 3 % (1-7); LYMPHOCYTES % (AUTO) 26 % (22-44); MEAN CORPUSCULAR HEMOGLOBIN 30.9 pg (27.5-34.5); MEAN CORPUSCULAR HGB CONC 33.8 g/dL (33.2-36.2); MEAN PLATELET VOLUME 7.6 fL (7.4-10.4); MONOCYTES % (AUTO) 9 % (2-9); NEUTROPHILS % (AUTO) 62 % (42-75); PLATELET COUNT 254 x10^3/uL (130-400); RED BLOOD COUNT 4.16 x10^6/uL (4.38-5.82); RED CELL DISTRIBUTION WIDTH 12.9 % (9.4-14.8)
[2020-11-22 15:13] LABS: ALANINE AMINOTRANSFERASE 25 U/L (12-78); ALBUMIN 2.8 g/dL (3.4-5.0); ANION GAP 3 mmol/L (5-15); CALCIUM 8.7 mg/dL (8.5-10.1); CHLORIDE 106 mmol/L (98-107); SALICYLATE LEVEL 4.1 mg/dL (2.8-20.0)
[2020-11-22 15:15] LABS: ALKALINE PHOSPHATASE 78 U/L (45-117); BILIRUBIN,TOTAL 0.2 mg/dL (0.2-1.0); CREATININE 0.84 mg/dL (0.7-1.3); TOTAL PROTEIN 6.4 g/dL (6.4-8.2)
--- NOTE | 2020-11-22 16:22 | NUR ---
PT ASLEEP IN BED, SITTER OUTSIDE OF ROOM FOR DIRECT OBSERVATION AND Q15 MIN SAFETY CHECKS.
--- NOTE | 2020-11-22 17:02 | NUR ---
WATER ADMINISTERED TO PT, HOB ELEVATED TO LEVEL OF COMFORT FOR PT. NAD NOTED AT THIS TIME. SITTER REMAINS OUTSIDE OF ROOM.
[2020-11-22 17:38] LABS: AMPHETAMINE SCREEN, URINE Negative (Negative); BARBITURATE SCREEN, URINE Negative (Negative); BENZODIAZEPINE SCREEN, URINE Negative (Negative); CANNABINOID SCREEN, URINE Negative (Negative); COCAINE SCREEN, URINE Negative (Negative); METHADONE SCREEN, URINE Negative (Negative); OPIATE SCREEN, URINE Negative (Negative)
--- NOTE | 2020-11-22 18:27 | NUR ---
RN TO BEDSIDE FOR GLUCOSE CHECK AND VITALS ASSESSMENT. PT SHOUTING AT RN, VERBALLY AGGRESSIVE, HOLDING HANDS UP IF THEY ARE GUNS TELLING RN TO "PUT YOUR HANDS UP". PT REFUSING FURTHER EVALUATION AT THIS TIME.
[2020-11-22] MEDS ORDERED: metFORMIN 500 MG TABLET PO ONE (18:30)
[2020-11-22] MEDS ORDERED: metFORMIN 500 MG TABLET ONE (18:31)
--- NOTE | 2020-11-22 19:00 | NUR ---
REPORT TO AIDEE ELLIS.
--- NOTE | 2020-11-22 19:34 | NUR ---
rn to bs for vitals, pt requesting shower this evening. This RN informed him we could arrange for that to happen this evening. hospital bed ordered at this time. Patient is resting comfortably in bed. Bed in lowest and rails engaged. room secured, sitter in line of sight, [facility].
--- NOTE | 2020-11-22 19:53 | NUR ---
[facility] ([facility]) NO BEDS AT THIS TIME
--- NOTE | 2020-11-22 20:15 | NUR ---
pt up to shower at this time. keagan changed out for hospital bed, pt denies additional needs at this time. room secured, sitter in line of sight, provided meal tray for comfort. NAD. daughter updated on POC with pt consent. wcbrice.
--- NOTE | 2020-11-22 20:24 | NUR ---
pt completed shower and went back to room, upon arrival to room pt states "i left something in the shower" pt told he could go grab item and when pt walked by shower, he did not stop continuing down the hallway, sitter called to pt and pt ignored her. security notified, pt walked back to room. on arrival to room pt informed on how to work the hospital bed to sit up. pt states "im blind, i cant see the buttons" rn re-educated pt on the bed use and to feel for buttons, rn also educated pt that she knows he is not blind as he is able to ambulate smoothly without guidance around er. pt back in bed, sitter in line of sight, room secured, [facility].
--- NOTE | 2020-11-22 20:35 | NUR ---
BEV RIVAS RN [facility]
[2020-11-22] MEDS ORDERED: ALBUTEROL/IPRATROPIUM 2.5MG/0.5MG, 3 ML NPPB ONE (21:30)
--- NOTE | 2020-11-22 21:30 | NUR ---
TP RN: [facility] TRANSPORT SET UP FOR 2199. PRIMARY RN UPDATED.
[2020-11-22] MEDS ORDERED: ALBUTEROL/IPRATROPIUM 2.5MG/0.5MG, 3 ML ONE (21:48)
[2020-11-22] MEDS ORDERED: ALBUTEROL SULFATE 2.5 MG/3 ML ONE (21:48)
--- NOTE | 2020-11-22 21:58 | NUR ---
TP RN: PER PRIMARY RN, PT NOW DESATTING, REQUIRING FURTHER MEDICAL WORK UP. [facility] AND [facility] NOTIFIED.
--- NOTE | 2020-11-22 21:59 | NUR ---
PT WAS ARRANGED TO GO TO [facility], PRIOR TO EMS ARRIVAL PT BEGAN COUGHING AND SPO2 SATS DECREASED TO 88%, PT PROVIDED NEB TREATMENT PER ERP FOR BREATHING. PT O2 SATS CONTINUED TO DECREASE TO 84% RA UPON EMS ARRIVING FOR TRANSPORT. AT THIS TIME PT PLACED ON SPO2 NC 2L AND PROVIDED A SECOND NEB TREATMENT. RN INFORMED [facility] AND THEY STATED THEY WOULD CONTINUE TO HOLD BED AT THIS TIME IN THE CASE THAT PT IS MEDICALLY CLEARED AGAIN. COVID SWAB OBTAINED AND WALKED TO LAB. PT APPEARS MORE COMFORTABLE RESTING ON HOSPITAL BED AT THIS TIME. SPO2 MONITORING IN PLACE, SITTER IN LINE OF SIGHT, [facility].
[2020-11-22] MEDS ORDERED: ALBUTEROL SULFATE 2.5 MG/3 ML NPPB ONE (22:00)
--- NOTE | 2020-11-22 23:41 | NUR ---
PT AMBULATORY TO RESTROOM WITH A SMOOTH AND STEADY GAIT, NAD, NO CHANGE IN CONDITION, MEDICATED PER MAR. WCTM.
[2020-11-22] MEDS ORDERED: FUROSEMIDE 40 MG/4 ML ONE (23:44)
[2020-11-22] MEDS ORDERED: ZIPRASIDONE 20 MG INJ IM ONE (23:54)
[2020-11-22] MEDS ORDERED: MIDAZOLAM 1 MG/ML, 2ML ONE (23:54)
[2020-11-23] MEDS ORDERED: FUROSEMIDE 40 MG/4 ML IV ONE
[2020-11-23] MEDS ORDERED: MIDAZOLAM 1 MG/ML, 5ML IVPush ONE
[2020-11-23] MEDS ORDERED: ZIPRASIDONE 20 MG INJ IM ONE
[2020-11-23 00:07] LABS: TROPONIN I < 0.015 ng/mL (0.000-0.045)
[2020-11-23] MEDS ORDERED: ACETAMINOPHEN 325 MG TABLET PO PRN (01:00)
[2020-11-23] MEDS ORDERED: ENOXAPARIN 40 MG/0.4 ML SQ SCH (01:00)
[2020-11-23] MEDS ORDERED: HALOPERIDOL 5 MG/ML IVPush PRN (01:00)
[2020-11-23 01:45] VITALS: BP 139/65
[2020-11-23 05:50] LABS: BASOPHILS % (AUTO) 1 % (0-1); EOSINOPHILS % (AUTO) 2 % (1-7); LYMPHOCYTES % (AUTO) 29 % (22-44); MEAN PLATELET VOLUME 7.8 fL (7.4-10.4); MONOCYTES % (AUTO) 7 % (2-9); NEUTROPHILS % (AUTO) 61 % (42-75); PLATELET COUNT 262 x10^3/uL (130-400); RED BLOOD COUNT 4.39 x10^6/uL (4.38-5.82); RED CELL DISTRIBUTION WIDTH 12.7 % (9.4-14.8)
[2020-11-23 05:59] LABS: ANION GAP 5 mmol/L (5-15); CALCIUM 8.8 mg/dL (8.5-10.1); CHLORIDE 104 mmol/L (98-107)
[2020-11-23 06:03] LABS: CREATININE 0.96 mg/dL (0.7-1.3)
[2020-11-23 06:15] VITALS: BP 129/77
[2020-11-23] MEDS ORDERED: FUROSEMIDE 40 MG/4 ML IV SCH (07:30)
[2020-11-23 08:55] VITALS: BP 132/80
[2020-11-23] MEDS: INSULIN LISPRO 100 UNITS/ML, PEN SQ-INSULIN SCH ×2 (09:16→11:49)
[2020-11-23 09:54] VITALS: BP 95/62
== END 2020-11-23 14:17 ==
LOC: ED 20:38 → EDIP 11-23 00:01 → INTOOBSV 11-23 00:01 → 5SO 11-23 01:32
PROVIDERS: ADMIT Internal Medicine; ATTEND Internal Medicine
DX: J96.01 Acute respiratory failure with hypoxia (principal); Z20.822 Contact with and (suspected) exposure to COVID-19; F29 Unspecified psychosis not due to a substance or known physiological condition; J45.909 Unspecified asthma, uncomplicated; R60.0 Localized edema; I11.0 Hypertensive heart disease with heart failure; I50.9 Heart failure, unspecified; E11.9 Type 2 diabetes mellitus without complications; E78.5 Hyperlipidemia, unspecified; G47.00 Insomnia, unspecified; R41.82 Altered mental status, unspecified; E87.1 Hypo-osmolality and hyponatremia; G93.0 Cerebral cysts; E66.01 Morbid (severe) obesity due to excess calories; F17.200 Nicotine dependence, unspecified, uncomplicated; F25.0 Schizoaffective disorder, bipolar type; Z79.899 Other long term (current) drug therapy; Z68.41 Body mass index [BMI] 40.0-44.9, adult
CPT/HCPCS: 36415; 71045; 80053; 80164; 80178; 80299; 80307; 80320; 80329; 82962; 83880; 84484; 85025; 87635; 96372; 96374; 96376; 99284; G0378; J1650; J1815; J1940; J7613; 80048; 99285; G0480

== ENCOUNTER → 2020-12-27 | Outpatient (CLI) | payer MEDICARE | END | disposition home or self-care (01) | LOC: CFH 10:09 | PROVIDERS: ATTEND Neurological Surgery | DX: G93.0 Cerebral cysts (principal) ==